=== PATIENT | male | born 1945 | race Caucasian/White ===

== ENCOUNTER 2019-09-26 19:33 | Inpatient (IN) | payer BC, MEDICARE, OTHER ==
[2019-09-26] MEDS ORDERED: Labetalol HCl 100 MG/20 ML VIAL SLOW IVP PRN (20:27)
[2019-09-26] MEDS ORDERED: Morphine 2 MG/ML SYRINGE SLOW IVP PRN (20:27)
[2019-09-26] MEDS ORDERED: Promethazine HCl 12.5 MG in Sodium Chloride 0.9% 50 ML IVPB PRN (20:27)
[2019-09-26] MEDS ORDERED: cloNIDine 0.1 MG TAB PO PRN (20:27)
[2019-09-26] MEDS ORDERED: Ondansetron PF 4 MG/2 ML Vial IVP PRN (20:27)
[2019-09-26] MEDS ORDERED: hydrALAZINE 20 MG/ML VIAL SLOW IVP PRN (20:27)
[2019-09-26] MEDS ORDERED: Guaifenesin DM 100-10/5 ML UDCUP PO PRN (20:31)
[2019-09-26] MEDS ORDERED: Bisacodyl 5 MG TAB PO PRN (20:31)
[2019-09-26] MEDS ORDERED: HYDROcodone/Acetaminophen 5/325 mg Tablet PO PRN (20:31)
[2019-09-26] MEDS ORDERED: Senokot S 8.6-50 MG TAB PO PRN (20:31)
--- NOTE | 2019-09-26 20:40 | PDOC.HHP ---
Hospitalist HPI - History of Present Illness Shortness of breath History of Present Illness: Patient is a 74 year old male with PMH HTN, CAD, CABG who presents to ED for shortness of breath, malaise, fever x 5-6 days, patient reports he developed a fever at work on September 16, about 9 days ago, and went home, his temperature was high, highest was 103.7, and this persisted for 5-6 days. He also reports extreme fatigue and malaise that lasted for several days. He developed shortness of breath 3 days ago or so, which was tolerable for a time but worsened today, patient reports some pleuritic pain today but nothing like previous cardiac pains he has had. He presented to [facility], vitals normal not hypoxic, Tmax there 99.1, given azithromycin and ceftriaxone and transferred for further care. Labs notable for elevated LFTs, AST 118, ALT 241, AKP 158. WBC 11.2. hgb 12, lactic acid 2.3, d dimer 12, tni 0.08,flu swab negative, abg wnl. CXR performed with infiltrates in bilateral lower lung peter and some suggestions of congestion. Patient transferred here for further care. Of note, CT chest for PE performed but do not believe report available yet. EKG NSR [address] changes or dropped beats. Currently patient denies SOB, comfortable on room air , no distress. Hospitalist ROS - Review of Systems Constitutional: reports: fever, chills, sweats, weakness, malaise Eyes: denies: pain, vision change, conjunctivae inflammation, eyelid inflammation, redness, other ENT: denies: ear pain, ear discharge, nose pain, nose discharge, nose congestion , mouth pain, mouth swelling, throat pain, throat swelling, other Respiratory: reports: cough, shortness of breath, pleuritic pain. denies: dry, hemoptysis, SOB with excertion, sputum, wheezing, other Cardiovascular: denies: chest pain, palpitations, orthopnea Gastrointestinal: denies: nausea, vomiting, abdominal pain Genitourinary: denies: dysuria, frequency Musculoskeletal: denies: neck pain, shoulder pain, arm pain, back pain Skin: denies: rash, lesions Neurological: denies: weakness, numbness, incoordination All other systems reviewed; all pertinent +/- noted in HPI/Subj Hospitalist History - Past Medical History Other Medical History: HTN CAD - Past Surgical History Past Surgical History: reports: CABG - Family History Family History: reports: no pertinent history Other Family History: reviewed - Social History Smoking Status: Never smoker Alcohol: reports: None Drugs: reports: none - Exam General Appearance: NAD, awake alert Eye: PERRL, anicteric sclera ENT: normocephalic atraumatic, no oropharyngeal lesions, moist mucosa Neck: supple, symmetric, no JVD, no thyromegaly, no lymphadenopathy, no carotid bruit Heart: RRR, no murmur, no gallops, no rubs, normal peripheral pulses Respiratory: CTAB, no wheezes, no rales, no ronchi, normal chest expansion, no tachypnea, normal percussion Gastrointestinal: soft, non-tender, non-distended, normal bowel sounds, no palpable masses, no hepatomegaly, no splenomegaly, no bruit Extremities: no cyanosis, no clubbing, no edema Skin: normal turgor, no lesions, no rashes Neurological: cranial nerve grossly intact, normal sensation to touch, no weakness, no focal deficits, no new deficit Musculoskeletal: normal tone, normal strength, no muscle wasting Psychiatric: normal affect, normal behavior, A&O x 3 Hospitalist Results - Labs Lab results: outside hospital records reviewed, see HPI for pertinent findings. EKG reviewed , imaging reviewed Hospitalist H&P A/P - Plan Plan: 74 M with PMH HTN, CAD, CABG admitted for: # fever, bilateral pneumonia lower lobes, shortness of breath, pleuritic pain - suspicious for covid/viral pneumonia vs bacterial pneumonia - COVID precautions, swab ordered and performed at [facility] and results will reportedly be reported to our facility when finalized - flu swab was negative there - admit to telemetry - continue azithromycin and ceftriaxone - resume home meds, tylenol PRN fever, follow up final CTA report [facility] - CXR at outside hospital with bilateral lower lobe pneumonia with possible suggestion of overload, will give small dose lasix for a few days # elevated troponin, history of CAD/CABG - EKG nonischemic, non anginal chest pain, will continue to trend cardiac enzymes and observe # elevated D dimer - not clinically appearing like a PE, follow up CTA at outside campus
[2019-09-26] MEDS ORDERED: Aspirin 325 MG TAB PO SCH (21:00)
[2019-09-26 21:14] LABS: Troponin I 0.082 ng/mL (< 0.028)
[2019-09-26] MEDS: Atorvastatin Calcium 40 MG TAB PO SCH (22:26)
[2019-09-26] MEDS: ALPRAZolam 0.25 MG TAB PO SCH (22:26)
[2019-09-26] MEDS: Metoprolol Tartrate 50 MG TAB PO SCH (22:27)
[2019-09-26] MEDS: Gabapentin 300 MG CAP PO SCH (22:27)
[2019-09-27] MEDS: Acetaminophen 325 MG TAB PO PRN ×4 (05:18→21:39)
[2019-09-27 05:22] LABS: #Basophils 0.1 thou/uL (0.0-0.2); #Eosinphils 0.1 thou/uL (0.0-0.7); #Lymphocytes 2.9 thou/uL (1.20-3.40); #Neutrophils 4.5 thou/uL (1.40-6.50); %Basophils 0.6 % (0.0-1.0); %Eosinophils 0.9 % (0.0-10.0); %Lymphocytes 34.2 % (21.0-51.0); %Monocytes 11.5 % (0.0-10.0); %Neutrophils 52.9 % (42.0-75.0); Hemoglobin 11.1 g/dL (14.0-18.0); Mean Corpuscular Hemoglobin 31.1 pg (27.0-31.0); Mean Corpuscular Volume 94.3 fL (78.0-98.0); Mean Platelet Volume 7.5 fL (7.4-10.4); Platelet Count 373 thou/uL (130-400); RBC Distribution Width 12.8 % (11.5-14.5); Red Blood Cell (RBC) Count 3.56 mill/uL (4.70-6.10); White Blood Cell (WBC) Count 8.4 thou/uL (4.8-10.8)
[2019-09-27 05:56] LABS: ALT (SGPT) 159 U/L (8-55); AST (SGOT) 79 U/L (5-34); Albumin 2.7 g/dL (3.4-4.8); Alkaline Phosphatase 126 U/L (40-110); Bilirubin, Direct 0.4 mg/dL (0.1-0.3); Bilirubin, Total 0.7 mg/dL (0.2-1.2); Protein, Total 6.5 g/dL (5.8-8.1)
[2019-09-27 05:57] LABS: Troponin I 0.055 ng/mL (< 0.028)
[2019-09-27 05:58] LABS: Anion Gap 11 mmol/L (10-20); BUN (Urea Nitrogen) 13 mg/dL (8.4-25.7); Calc. Creatinine Clearance 102 mL/min (70-130); Calcium 7.8 mg/dL (7.8-10.44); Carbon Dioxide 22 mmol/L (23-31); Chloride 106 mmol/L (98-107); Estimated GFR-MDRD Greater than 90; Glucose 96 mg/dL (83-110); Magnesium 2.2 mg/dL (1.6-2.6); Potassium 4.4 mmol/L (3.5-5.1); Sodium 135 mmol/L (136-145)
[2019-09-27 06:13] LABS: HBCM Index 0.34 S/CO (0-0.79); HBSAg Index 0.23 S/CO (0-0.99); Hep A IgM AB Non-Reactive (NonReactive); Hep A IgM S/CO 0.25 S/CO (0-0.79); Hep B Surf Ag Non-Reactive S/CO (NonReactive); Hep C IgG Ab Non-Reactive (NonReactive); Hep C Index 0.52 S/CO (0-0.79); Hepatitis B Core IgM Abs Non-Reactive (NonReactive)
[2019-09-27] MEDS ORDERED: Furosemide 40 MG TAB PO SCH (07:30)
--- NOTE | 2019-09-27 07:31 | ULT ---
EXAM: US Gallbladder RUQ CLINICAL HISTORY: Elevated liver function tests. COMPARISON: None. FINDINGS: Pancreas: The head and proximal pancreatic body have a normal echotexture. Remainder of pancreas is obscured by bowel gas Liver:Hepatic parenchyma has a normal echotexture. No hepatic masses or intrahepatic biliary dilatati on. Right hepatic lobe: 17.8 cm Gallbladder: No sonographic evidence of cholelithiasis, gallbladder wall thickening or pericholecysti c fluid. Engel's sign:Negative Portal Vein: Patent. Appropriate directional flow Bile ducts: 0.4 cm common bile duct diameter Right kidney: Right renal cortical thinning. No hydronephrosis.. Right kidney measures 10.5 cm in [facility]. Incidentals: Right pleural effusion IMPRESSION: 1. No sonographic evidence of cholelithiasis or cholecystitis. 2. No hydronephrosis. Right renal cortical thinning. 3. Right pleural effusion
[2019-09-27] MEDS: Azithromycin 250 MG TAB PO SCH (07:46)
[2019-09-27] MEDS: Metoprolol Tartrate 50 MG TAB PO SCH ×2 (07:46→20:43)
[2019-09-27] MEDS: ALPRAZolam 0.25 MG TAB PO SCH ×3 (07:47→20:43)
[2019-09-27] MEDS: Enoxaparin Sodium 40 MG/0.4 ML SYRINGE SC SCH (07:47)
[2019-09-27] MEDS: Escitalopram Oxalate 10 mg Tablet PO SCH (07:47)
[2019-09-27] MEDS: Aspirin 81 mg Enteric Coated Tablet PO SCH (07:47)
[2019-09-27] MEDS: Polyethylene Glycol 3350 17 GM Packet PO SCH (07:47)
[2019-09-27 09:04] LABS: Troponin I 0.044 ng/mL (< 0.028)
--- NOTE | 2019-09-27 18:06 | PDOC.HOSPP ---
- Subjective Encounter Date: 09/27/19 Encounter Time: 16:30 Subjective: pt up in bed feels well. - Objective Vital Signs & Weight: Vital Signs (12 hours) Temp Pulse Resp BP Pulse Ox 09/27/19 15:53 98.2 F 78 21 H 149/80 H 96 09/27/19 12:27 97.5 F L 65 25 H 126/78 94 L 09/27/19 07:50 97.7 F 69 18 145/71 H 93 L Weight Weight 180 lb 9.6 oz I&O: 09/26/19 09/27/19 09/28/19 06:59 06:59 06:59 Intake Total 120 Balance 120 Result Diagrams: 09/27/19 04:53 09/27/19 04:53 Hospitalist ROS - Review of Systems Respiratory: denies: cough, dry, shortness of breath, hemoptysis, SOB with excertion, pleuritic pain, sputum, wheezing, other Cardiovascular: denies: chest pain, palpitations, orthopnea, paroxysmal noc. dyspnea, edema, light headedness, other Gastrointestinal: denies: nausea, vomiting, abdominal pain, diarrhea, constipation, melena, hematochezia, other - Medication Medications: Active Medications Generic Name Dose Route Start Last Admin Trade Name Freq PRN Reason Stop Dose Admin Acetaminophen 650 mg 09/26/19 20:31 09/27/19 15:52 Tylenol PO 650 mg Q4H PRN Administration Headache/Fever/Mild Pain (1-3) Alprazolam 0.25 mg 09/26/19 21:00 09/27/19 15:52 Xanax PO 0.25 mg TID ANATOLIY Administration Aspirin 81 mg 09/27/19 09:00 09/27/19 07:47 Ecotrin PO 81 mg DAILY ANATOLIY Administration Atorvastatin Calcium 40 mg 09/26/19 21:00 09/26/19 22:26 Lipitor PO 40 mg HS ANATOLIY Administration Azithromycin 250 mg 09/27/19 09:00 09/27/19 07:46 Zithromax PO 09/30/19 09:01 250 mg DAILY ANATOLIY Administration Enoxaparin Sodium 40 mg 09/27/19 09:00 09/27/19 07:47 Lovenox SC 40 mg 0900 ANATOLIY Administration Escitalopram Oxalate 10 mg 09/27/19 09:00 09/27/19 07:47 Lexapro PO 10 mg DAILY ANATOLIY Administration Furosemide 40 mg 09/27/19 07:30 09/27/19 07:47 Lasix PO 09/29/19 07:31 40 mg DAILY-AC ANATOLIY Administration Gabapentin 600 mg 09/26/19 21:00 09/26/19 22:27 Neurontin PO 600 mg HS ANATOLIY Administration Metoprolol Tartrate 50 mg 09/26/19 21:00 09/27/19 07:46 Lopressor PO 50 mg BID ANATOLIY Administration Pantoprazole Sodium 40 mg 09/27/19 09:00 09/27/19 07:47 Protonix PO 40 mg DAILY ANATOLIY Administration Polyethylene Glycol 17 gm 09/27/19 09:00 09/27/19 07:47 Miralax PO Not Given DAILY ANATOLIY - Exam Heart: negative: RRR, no murmur, no gallops, no rubs, normal peripheral pulses, irregular, diminshed peripheral pulses, murmur present, II/IV, III/IV Respiratory: negative: CTAB, no wheezes, no rales, no ronchi, normal chest expansion, no tachypnea, normal percussion, rales, rhonchi, tachypneic, wheezes Gastrointestinal: negative: soft, non-tender, non-distended, normal bowel sounds , no palpable masses, no hepatomegaly, no splenomegaly, no bruit, no guarding, no rigidity, tender to palpation, distended, diminished bowl sounds, voluntary guarding Extremities: 1+ LE edema Hosp A/P (1) SOB (shortness of breath) Code(s): R06.02 - SHORTNESS OF BREATH Status: Acute (2) Pneumonia Code(s): J18.9 - PNEUMONIA, UNSPECIFIED ORGANISM Status: Acute (3) CAD (coronary artery disease) Code(s): I25.10 - ATHSCL HEART DISEASE OF [place] CORONARY ARTERY W/O ANG PCTRS Status: Acute (4) Renal mass Code(s): N28.89 - OTHER SPECIFIED DISORDERS OF KIDNEY AND URETER Status: Acute - Plan pt's cta indicates mild to moderate pleural effusion with adjacent infiltrate/ atelectatic changes. pt has been having fevers. covid test pending. will get a echo. He had a elevated d-dimer and elevated lfts. pt states that he has been ill since september 10. He had fever for about 5-6 days pt got better then got sick again. 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 prior to coming in he got sob which made him come in to the hospital. Per pt he was pt on a bipap at the [facility]. He states he feels well. will continue his lasix oral. His bnp was mildly elevated. NO PE. trop was mildly elevated.
[2019-09-27] MEDS: Gabapentin 300 MG CAP PO SCH (20:43)
[2019-09-27] MEDS: Atorvastatin Calcium 40 MG TAB PO SCH (20:43)
[2019-09-27] MEDS: cefTRIAXone\\ROCEPHIN 1 GM in Sodium Chloride 0.9% 100 ML IVPB SCH (20:43)
[2019-09-28] MEDS: Acetaminophen 325 MG TAB PO PRN (04:56)
[2019-09-28 05:27] LABS: #Eosinphils 0.1 thou/uL (0.0-0.7); #Lymphocytes 2.3 thou/uL (1.20-3.40); #Monocytes 0.8 thou/uL (0.11-0.59); #Neutrophils 3.6 thou/uL (1.40-6.50); %Basophils 0.6 % (0.0-1.0); %Eosinophils 1.3 % (0.0-10.0); %Lymphocytes 33.7 % (21.0-51.0); %Monocytes 12.2 % (0.0-10.0); %Neutrophils 52.2 % (42.0-75.0); Hemoglobin 11.4 g/dL (14.0-18.0); Mean Corpuscular HGB CONC 32.9 g/dL (32.0-36.0); Mean Corpuscular Hemoglobin 31.2 pg (27.0-31.0); Mean Corpuscular Volume 94.6 fL (78.0-98.0); Mean Platelet Volume 7.2 fL (7.4-10.4); Platelet Count 374 thou/uL (130-400); RBC Distribution Width 12.9 % (11.5-14.5); Red Blood Cell (RBC) Count 3.66 mill/uL (4.70-6.10); White Blood Cell (WBC) Count 6.9 thou/uL (4.8-10.8)
[2019-09-28 05:45] LABS: Anion Gap 13 mmol/L (10-20); BUN (Urea Nitrogen) 11 mg/dL (8.4-25.7); Calc. Creatinine Clearance 102 mL/min (70-130); Carbon Dioxide 22 mmol/L (23-31); Chloride 107 mmol/L (98-107); Estimated GFR-MDRD Greater than 90; Glucose 94 mg/dL (83-110); Magnesium 2.3 mg/dL (1.6-2.6); Potassium 4.2 mmol/L (3.5-5.1); Sodium 138 mmol/L (136-145)
[2019-09-28 05:47] LABS: ALT (SGPT) 135 U/L (8-55); AST (SGOT) 68 U/L (5-34); Albumin 2.8 g/dL (3.4-4.8); Alkaline Phosphatase 119 U/L (40-110); Bilirubin, Direct 0.4 mg/dL (0.1-0.3); Bilirubin, Total 0.7 mg/dL (0.2-1.2); Protein, Total 6.7 g/dL (5.8-8.1)
[2019-09-28] MEDS ORDERED: Fioricet 325/50/40 mg Tablet PO PRN (09:25)
[2019-09-28] MEDS: Enoxaparin Sodium 40 MG/0.4 ML SYRINGE SC SCH (09:28)
[2019-09-28] MEDS: Polyethylene Glycol 3350 17 GM Packet PO SCH (09:28)
[2019-09-28] MEDS: Escitalopram Oxalate 10 mg Tablet PO SCH (09:29)
[2019-09-28] MEDS: Azithromycin 250 MG TAB PO SCH (09:29)
[2019-09-28] MEDS: ALPRAZolam 0.25 MG TAB PO SCH ×3 (09:29→20:33)
[2019-09-28] MEDS: Furosemide 40 MG/4 ML VIAL SLOW IVP SCH (09:29)
[2019-09-28] MEDS: Metoprolol Tartrate 50 MG TAB PO SCH ×2 (09:29→20:33)
[2019-09-28] MEDS: Aspirin 81 mg Enteric Coated Tablet PO SCH (09:29)
[2019-09-28] MEDS: Carbamide Peroxide 6.5% Otic Drops 15 ml Bottle EA EAR SCH ×2 (09:29→20:34)
--- NOTE | 2019-09-28 10:23 | RAD ---
Exam: Chest one view HISTORY:Shortness of breath Comparison: None FINDINGS: Cardiac silhouette:Normal cardiac silhouette. There are sternotomy wires. Aorta: Atherosclerosis Pulmonary vessels: Slightly prominent Costophrenic angles: Clear LUNGS: Diffuse interstitial prominence, without consolidation or mass. Pneumothorax: None Osseous abnormalities: None IMPRESSION: 1. Pulmonary vascular prominence and interstitial prominence. Correlate for volume overload. 2. Superimposed interstitial infiltrate cannot be excluded. Continued surveillance is recommended.
[2019-09-28 17:22] LABS: SARS-CoV-2 MS2 Positive; SARS-CoV-2 N Gene Negative; SARS-CoV-2 S Gene Negative; SARS-CoV-2 orf1ab Negative
[2019-09-28 20:00] LABS: SARS-CoV-2 IgG Ab Non-Reactive (NonReactive)
[2019-09-28] MEDS: cefTRIAXone\\ROCEPHIN 1 GM in Sodium Chloride 0.9% 100 ML IVPB SCH (20:32)
[2019-09-28] MEDS: Gabapentin 300 MG CAP PO SCH (20:33)
[2019-09-28] MEDS: Atorvastatin Calcium 40 MG TAB PO SCH (20:34)
[2019-09-28 20:46] LABS: SARS-CoV-2 IgG Index 0.02 S/CO (< 1.40)
[2019-09-29] MEDS: Acetaminophen 325 MG TAB PO PRN (03:53)
[2019-09-29 04:04] VITALS: BMI 27.1
[2019-09-29 05:24] LABS: #Basophils 0.1 thou/uL (0.0-0.2); #Eosinphils 0.1 thou/uL (0.0-0.7); #Lymphocytes 2.1 thou/uL (1.20-3.40); #Monocytes 0.7 thou/uL (0.11-0.59); #Neutrophils 3.5 thou/uL (1.40-6.50); %Basophils 1.1 % (0.0-1.0); %Eosinophils 1.8 % (0.0-10.0); %Lymphocytes 32.2 % (21.0-51.0); %Monocytes 10.9 % (0.0-10.0); %Neutrophils 54.1 % (42.0-75.0); Hemoglobin 11.8 g/dL (14.0-18.0); Mean Corpuscular HGB CONC 30.8 g/dL (32.0-36.0); Mean Corpuscular Hemoglobin 29.4 pg (27.0-31.0); Mean Corpuscular Volume 95.5 fL (78.0-98.0); Mean Platelet Volume 7.2 fL (7.4-10.4); Platelet Count 394 thou/uL (130-400); RBC Distribution Width 12.9 % (11.5-14.5); White Blood Cell (WBC) Count 6.5 thou/uL (4.8-10.8)
[2019-09-29 05:38] LABS: ALT (SGPT) 113 U/L (8-55); AST (SGOT) 57 U/L (5-34); Albumin 2.8 g/dL (3.4-4.8); Alkaline Phosphatase 116 U/L (40-110); Anion Gap 13 mmol/L (10-20); BUN (Urea Nitrogen) 12 mg/dL (8.4-25.7); Bilirubin, Direct 0.3 mg/dL (0.1-0.3); Bilirubin, Total 0.6 mg/dL (0.2-1.2); Calc. Creatinine Clearance 95 mL/min (70-130); Calcium 7.8 mg/dL (7.8-10.44); Carbon Dioxide 23 mmol/L (23-31); Chloride 105 mmol/L (98-107); Estimated GFR-MDRD Greater than 90; Glucose 87 mg/dL (83-110); Magnesium 2.2 mg/dL (1.6-2.6); Protein, Total 6.7 g/dL (5.8-8.1); Sodium 137 mmol/L (136-145)
--- NOTE | 2019-09-29 06:04 | PDOC.HOSPP ---
- Subjective Encounter Date: 09/28/19 Encounter Time: 10:15 Subjective: pt up in bed no complains - Objective Vital Signs & Weight: Vital Signs (12 hours) Temp Pulse Resp BP Pulse Ox 09/29/19 03:15 97.8 F 71 14 160/87 H 95 09/28/19 20:10 98.3 F 68 15 140/74 97 Weight Weight 168 lb 11.2 oz I&O: 09/27/19 09/28/19 09/29/19 06:59 06:59 06:59 Intake Total 120 1060 2640 Output Total 650 Balance 953 227 7480 Result Diagrams: 09/29/19 04:43 09/29/19 04:43 Hospitalist ROS - Review of Systems Gastrointestinal: denies: nausea, vomiting, abdominal pain, diarrhea, constipation, melena, hematochezia, other Genitourinary: denies: dysuria, frequency, incontinence, hematuria, retention, other Musculoskeletal: denies: neck pain, shoulder pain, arm pain, back pain, hand pain, leg pain, foot pain, other - Medication Medications: Active Medications Generic Name Dose Route Start Last Admin Trade Name Freq PRN Reason Stop Dose Admin Acetaminophen 650 mg 09/26/19 20:31 09/29/19 03:53 Tylenol PO 650 mg Q4H PRN Administration Headache/Fever/Mild Pain (1-3) Acetaminophen/Butalbital/Caffeine 1 tab 09/28/19 09:25 09/28/19 12:59 Fioricet PO 10/03/19 09:26 1 tab Q4H PRN Administration Headache Alprazolam 0.25 mg 09/26/19 21:00 09/28/19 20:33 Xanax PO 0.25 mg TID ANATOLIY Administration Aspirin 81 mg 09/27/19 09:00 09/28/19 09:29 Ecotrin PO 81 mg DAILY ANATOLIY Administration Atorvastatin Calcium 40 mg 09/26/19 21:00 09/28/19 20:34 Lipitor PO 40 mg HS ANATOLIY Administration Azithromycin 250 mg 09/27/19 09:00 09/28/19 09:29 Zithromax PO 09/30/19 09:01 250 mg DAILY ANATOLIY Administration Carbamide Perox/Anhydrous Glycerin 1 drop 09/28/19 09:00 09/28/19 20:34 Debrox 6.5% Otic EA EAR 1 drop BID ANATOLIY Administration Enoxaparin Sodium 40 mg 09/27/19 09:00 09/28/19 09:28 Lovenox SC 40 mg 0900 ANATOLIY Administration Escitalopram Oxalate 10 mg 09/27/19 09:00 09/28/19 09:29 Lexapro PO 10 mg DAILY ANATOLIY Administration Furosemide 40 mg 09/28/19 09:00 09/28/19 09:29 Lasix SLOW IVP 09/29/19 09:01 40 mg DAILY ANATOLIY Administration Gabapentin 600 mg 09/26/19 21:00 09/28/19 20:33 Neurontin PO 600 mg HS ANATOLIY Administration Ceftriaxone Sodium 1 gm/ 100 mls @ 200 mls/hr 09/27/19 20:00 09/28/19 20:32 Sodium Chloride IVPB 100 mls 2000 ANATOLIY Administration Metoprolol Tartrate 50 mg 09/26/19 21:00 09/28/19 20:33 Lopressor PO 50 mg BID ANATOLIY Administration Pantoprazole Sodium 40 mg 09/27/19 09:00 09/28/19 09:29 Protonix PO 40 mg DAILY ANATOLIY Administration Polyethylene Glycol 17 gm 09/27/19 09:00 09/28/19 09:28 Miralax PO 17 gm DAILY ANATOLIY Administration Sodium Chloride 10 ml 09/28/19 21:00 09/28/19 20:34 Flush - Normal Saline IVF 10 ml Q12HR ANATOLIY Administration - Exam Heart: negative: RRR, no murmur, no gallops, no rubs, normal peripheral pulses, irregular, diminshed peripheral pulses, murmur present, II/IV, III/IV Respiratory: negative: CTAB, no wheezes, no rales, no ronchi, normal chest expansion, no tachypnea, normal percussion, rales, rhonchi, tachypneic, wheezes Gastrointestinal: negative: soft, non-tender, non-distended, normal bowel sounds , no palpable masses, no hepatomegaly, no splenomegaly, no bruit, no guarding, no rigidity, tender to palpation, distended, diminished bowl sounds, voluntary guarding Extremities: negative: no cyanosis, no clubbing, no edema, 1+ LE edema, 2+ LE edema, clubbing Hosp A/P (1) SOB (shortness of breath) Code(s): R06.02 - SHORTNESS OF BREATH Status: Acute (2) Pneumonia Code(s): J18.9 - PNEUMONIA, UNSPECIFIED ORGANISM Status: Acute (3) CAD (coronary artery disease) Code(s): I25.10 - ATHSCL HEART DISEASE OF [place] CORONARY ARTERY W/O ANG PCTRS Status: Acute (4) Renal mass Code(s): N28.89 - OTHER SPECIFIED DISORDERS OF KIDNEY AND URETER Status: Acute - Plan pt's cta indicates mild to moderate pleural effusion with adjacent infiltrate/ atelectatic changes. pt has been having fevers. covid test pending. will get a echo. He had a elevated d-dimer and elevated lfts. pt states that he has been ill since september 10. He had fever for about 5-6 days pt got better then got sick again. 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 prior to coming in he got sob which made him come in to the hospital. Per pt he was pt on a bipap at the [facility]. He states he feels well. will continue his lasix oral. His bnp was mildly elevated. NO PE. trop was mildly elevated. 5/5 covid tested again given his symptoms. He apparently had 3 test and are negative. will get echo. he is feeling a lot better. His cta reviewed and appears to have emphysema significant. He has a hx of smoking 2 pack a day in the past. will continue diuretics for now. His lfts are improving. RUQ ultrasound indicated mild hepatomegaly. hepatitis panel negative.if echo normal will discharge him home today. His headache is also improving.
[2019-09-29] MEDS: Enoxaparin Sodium 40 MG/0.4 ML SYRINGE SC SCH (08:59)
[2019-09-29] MEDS: ALPRAZolam 0.25 MG TAB PO SCH (08:59)
[2019-09-29] MEDS: Furosemide 40 MG/4 ML VIAL SLOW IVP SCH (08:59)
[2019-09-29] MEDS: Polyethylene Glycol 3350 17 GM Packet PO SCH (09:00)
[2019-09-29] MEDS: Aspirin 81 mg Enteric Coated Tablet PO SCH (09:00)
[2019-09-29] MEDS: Azithromycin 250 MG TAB PO SCH (09:00)
[2019-09-29] MEDS: Metoprolol Tartrate 50 MG TAB PO SCH (09:00)
[2019-09-29] MEDS: Escitalopram Oxalate 10 mg Tablet PO SCH (09:00)
[2019-09-29] MEDS: Carbamide Peroxide 6.5% Otic Drops 15 ml Bottle EA EAR SCH (09:00)
[2019-09-29 11:59] VITALS: BP 160/81; TEMP 97.4
--- NOTE | 2019-09-30 04:50 | DIS ---
DATE OF ADMISSION: 09/26/2019 DATE OF DISCHARGE: 09/29/2019 DISCHARGE DIAGNOSES: As of the following. 1. Shortness of breath, acute onset. 2. Pneumonia. 3. Coronary artery disease. 4. Elevated liver function tests. 5. Renal mass. HOSPITAL COURSE: The patient is a 74-year-old male, who initially presented to the hospital at [facility] with complaints of sudden onset of shortness of breath x1 day. The patient states that towards the mid August, he was ill for about 6 days, had very high fevers. He stated that he initially felt better, then started feeling unwell. He had an outpatient drive-through COVID test, which was negative. The patient stated that he had a low-grade fever and just felt weak all over. On the day of admission, the patient stated that he had minimal exertion, significant shortness of breath and that is why he came into the hospital. The patient underwent a CTA to rule out PE given his elevated D-dimer. His CTA for PE was negative. However, upon evaluating his CAT scan, he had a significant amount of emphysematous changes and also bilateral small pleural effusions and appeared to have possible infiltrate left greater than right, which was noted. He also had some mediastinal and hilar lymphadenopathy that was noted. The patient also had mentioned of an indeterminate 2.3 cm renal mass that was noted on the left kidney. The patient initially had elevated LFTs with unclear etiology. His serology for hepatitis was negative. His abdominal ultrasound indicated mild hepatomegaly. However, everything else appeared to be normal. I initially continued the atorvastatin throughout the hospital stay. His LFTs actually improved. The reason for continuing of his atorvastatin was that he has a history of significant hypercholesterolemia and patient states that when he stops taking it, his cholesterol goes up to the 350s. At this time, given the fact that his LFTs were improving just with his atorvastatin on, I have continued it. I would like the patient to get a recheck of his LFTs on his next visit to his primary care doctor. He had a COVID test done a total of 3 times and they were all negative. The COVID IgG was also negative. The patient also was given diuretics. Initially his BNP was 179. When I rechecked it while he was on diuretics, it was 293. I did go ahead and do an echocardiogram, which indicated an EF of 50% to 60% with normal left size atrium and left ventricular size was also normal. He did have an EKG done, which was sinus rhythm. He did have some mildly elevated troponins, which most likely was secondary to possibly just demand related. He denied any chest pain. The patient has been ambulating in the hallway without any issues without any problems. I did speak with the and the patient, the patient will need a followup with: 1. Pulmonology given his extensive emphysematous changes on the CAT scan. 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 He does have a history of heavy smoking, but he quit many years ago. 2. I recommend the patient getting LFTs checked since he continues to be on a statin. 3. I also recommend the patient to follow up with Cardiology. 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 4. I recommend patient establishing and he stated that he will follow up with Dr. Romano. He did have some mildly elevated troponins, which were in the indeterminate range. However, the patient never had any chest pain. 5. He also has a finding of a renal 2.3 cm mass, for which he will require an ultrasound and an evaluation. 6. In terms of pneumonia, he did really well with azithromycin and ceftriaxone. I am switching it over to Levaquin 750 mg total of about 10 days. PHYSICAL EXAMINATION: VITAL SIGNS: Temperature of 97.8, 71, 14, 95% on room air, 145/77. GENERAL: He is awake, alert, and oriented x3. Does not appear in distress. CV: S1, S2 present. No murmurs, rubs, gallops. ABDOMEN: Soft and nontender. Bowel sounds are present x2. HOME MEDICATIONS: Will be as of the followin. Levofloxacin 750 mg daily for about 7 days. 2. Atorvastatin 40 mg daily. 3. Gabapentin 600 mg at bedtime. 4. Citalopram 10 mg daily. 5. Metoprolol 50 mg b.i.d. 6. Xanax 0.25 t.i.d. DISPOSITION: He will be discharged home. FOLLOWUP: He will follow up with his primary. Job ID: [id number]
--- NOTE | 2019-09-30 07:04 | PQF ---
[employer] Rep[employer]r Crystal Reports Winform Viewer BC JIMENEZ KARISHMA [id number] [facility]244 [id number] CLINICAL DOCUMENTATION CLARIFICATION FORM: POST DISCHARGE Addendum to original discharge summary date: ____ Late entry note date: __ DATE:09/30/19 ATTN: Valerie Gottlieb Please exercise your independent, professional judgment in responding to the clarification form. Clinical indicators are provided on the bottom of this form for your review Can you please further clarify the specificity of Pneumonia? Please check appropriate box(s): [ ] Empirically treating Gram Negative Pneumonia [ ] Empirically treating Anaerobic Pneumonia [ ] Pneumonia secondary to (specify organism / underlying disease) [ ] Simple Pneumonia (community acquired - nosocomial) [ x ] Pneumonia of unknown etiology [ ] Other diagnosis please specify [ ] Unable to determine In addition, please specify: Present on Admission (POA): [ x ] Yes [ ] No [ ] Unable to determine For continuity of documentation, please document condition throughout progress notes and discharge summary. Thank You. CLINICAL INDICATORS - SIGNS / SYMPTOMS / LABS H and P pg.1- Shortness of breath H and P pg.3- admitted for Fever, bilateral pneumonia lower lobes, shortness of breath, pleuritic pain H and P pg.3- suspicious for covid/viral pneumonia vs bacterial pneumonia Hospitalist PN 09/27 pg.5- Pneumonia, unspecified organism RISK FACTORS 74 years old H and P pg.1 CAD- H and P pg.1 HTN- H and P pg.1 TREATMENTS: Chest X ray 09/27 IV Fluids- MAR Azithromycin 250mg PO- MAR Ceftriaxone 1gm IV- MAR (This form is maintained as a part of the permanent medical record) 2014 [email or web address]. All Rights Reserved [email or web address]
--- NOTE | 2019-10-05 12:32 | PQF ---
CLINICAL DOCUMENTATION IMPROVEMENT CLARIFICATION FORM: ICD-10 Updated PLEASE DO AN ADDENDUM TO THE PROGRESS NOTE WITH ANY DOCUMENTATION UPDATES OR ADDITIONS AND CARRY THROUGH TO DC SUMMARY. THANK YOU. DATE: 10/05/2019 ATTN: Dr. Gottlieb Please exercise your independent, professional judgment in responding to the clarification form. Clinical indicators are provided on the bottom of this form for your review Please check appropriate box(s): HEART FAILURE: A. ACUITY [ ] Acute [ ] Acute on Chronic [ ] Chronic B. TYPE [ ] Systolic / HFrEF [ ] Diastolic / HFpEF [ ] Combined Systolic / Diastolic [ ] Other diagnosis [ ] Unable to determine In addition, please specify: Present on Admission (POA): [ ] Yes [ ] No [ ] Unable to determine For continuity of documentation, please document condition throughout progress notes and discharge summary. Thank You. CLINICAL INDICATORS - SIGNS / SYMPTOMS / LABS / RESULTS AND LOCATION IN EMR H&P 09/25: CXR performed with infiltrates in bilateral lower lung peter and some suggestions of congestion. CXR at outside hospital with bilateral lower lobe pneumonia with possible suggestion of overload, will give small dose lasix for a few days 09/26 (Chery) Exam: 1+ LE edema A/P: SOB Plan: pt's cta indicates mild to moderate pleural effusion with adjacent infiltrate/atelectatic changes. His bnp was mildy elevated DC Summary 09/28 : Initially his BNP was 179. When I rechecked it while he was on diuretics, it was 293 Echocardiogram, indicated an EF of 50% to 60% with normal L size atrium and L ventricular size was also normal. Echocardiogram Report 09/28: Impaired relaxation compatible with diastolic dysfunction (reversed E/A ratio) RISKS: H&P 09/25: PMH HTN, CAD, CABG. TREATMENT: Order 09/26: Lasix 40mg po daily Order 09/26-09/27: Lasix 40mg slow IVP Daily ECHO 09/28 Thank you, Sarah (This form is maintained as a part of the permanent medical record) 2014 [employer]. All Rights Reserved Sarah Butts RN, BSN [email or web address] [facility]
== END 2019-09-29 15:15 | disposition home or self-care (01) | DRG 194 ==
LOC: 2SW 19:33 → OBSVTOIN 19:33
PROVIDERS: ADMIT Internal Medicine; ATTEND Internal Medicine
DX: J18.9 Pneumonia, unspecified organism (principal); J90 Pleural effusion, not elsewhere classified; Z20.828 Contact with and (suspected) exposure to other viral communicable diseases; I25.10 Atherosclerotic heart disease of native coronary artery without angina pectoris; N28.89 Other specified disorders of kidney and ureter; I10 Essential (primary) hypertension; Z95.1 Presence of aortocoronary bypass graft
CPT/HCPCS: 36415; 71045; 76705; 80048; 80074; 80076; 83735; 83880; 84145; 84484; 85025; 86140; 86769; 87635; 93306; J0696; J1650; J1940; J3490; U0003

== ENCOUNTER 2019-11-19 13:10 | Outpatient (CLI) | payer BC, MEDICARE ==
--- NOTE | 2019-11-19 14:30 | ULT ---
BILATERAL CAROTID DUPLEX ULTRASOUND: 11/19/19 HISTORY: Atherosclerotic vascular disease. Coronary artery disease. TECHNIQUE: Mitchell scale, color flow and spectral Doppler imaging of the extracranial carotid artery system is perf ormed bilaterally. FINDINGS: There is plaque formation in the right ICA. The peak systolic velocity in the right ICA measures 76 cm/s with an end diastolic velocity of 22 cm/ s and systolic ratio of 0.9. The peak systolic velocity in the left ICA measures 92 cm/s with an end diastolic velocity of 20 cm/s and systolic ratio of 1.02. Flow in both vertebral arteries remains antegrade. IMPRESSION: No evidence of hemodynamically significant stenosis in either ICA. POS: [facility]
== END 2019-11-19 13:11 | disposition home or self-care (01) ==
LOC: BICULT 13:10
PROVIDERS: ATTEND Psychiatry & Neurology Neurology
DX: I25.10 Atherosclerotic heart disease of native coronary artery without angina pectoris (principal)
CPT/HCPCS: 93880

== ENCOUNTER 2019-12-30 07:29 | Outpatient (CLI) | payer BC, MEDICARE, OTHER ==
--- NOTE | 2019-12-30 15:15 | RAD ---
EXAM: Chest 2 views: HISTORY: Preoperative radiograph COMPARISON: 09/28/2019 FINDINGS: There is a normal-sized cardiomediastinal silhouette. The patient is status post sternotomy. There is no evidence of consolidation, mass, or pleural effusion. The bones are unremarkable. IMPRESSION: No evidence of acute cardiopulmonary disease
[2019-12-30 16:17] LABS: #Eosinphils 0.2 thou/uL (0.0-0.7); #Lymphocytes 2.7 thou/uL (1.20-3.40); #Monocytes 0.6 thou/uL (0.11-0.59); #Neutrophils 3.6 thou/uL (1.40-6.50); %Basophils 0.4 % (0.0-1.0); %Eosinophils 2.8 % (0.0-10.0); %Monocytes 8.6 % (0.0-10.0); %Neutrophils 50.2 % (42.0-75.0); Mean Corpuscular Hemoglobin 30.7 pg (27.0-31.0); Mean Corpuscular Volume 93.1 fL (78.0-98.0); Mean Platelet Volume 8.1 fL (7.4-10.4); Platelet Count 369 thou/uL (130-400); RBC Distribution Width 12.7 % (11.5-14.5); Red Blood Cell (RBC) Count 4.25 mill/uL (4.70-6.10); White Blood Cell (WBC) Count 7.2 thou/uL (4.8-10.8)
--- NOTE | 2019-12-30 16:26 | EKG ---
Test Reason : Blood Pressure : / mmHG Vent. Rate : 080 BPM Atrial Rate : 080 BPM P-R Int : 164 ms QRS Dur : 080 ms QT Int : 376 ms P-R-T Axes : 063 052 042 degrees QTc Int : 433 ms Normal sinus rhythm Normal ECG Confirmed by JORGE BAI ([id number] on 12/30/2019 4:26:26 PM Referred By: LUI Confirmed By:JORGE BAI
[2019-12-30 16:42] LABS: Anion Gap 11 mmol/L (10-20); BUN (Urea Nitrogen) 26 mg/dL (8.4-25.7); Calc. Creatinine Clearance 0 mL/min (70-130); Calcium 8.9 mg/dL (7.8-10.44); Carbon Dioxide 28 mmol/L (23-31); Chloride 104 mmol/L (98-107); Estimated GFR-MDRD 73; Glucose 105 mg/dL (83-110); Potassium 4.3 mmol/L (3.5-5.1); Sodium 139 mmol/L (136-145)
[2019-12-31 14:22] LABS: SARS-CoV-2 MS2 Positive; SARS-CoV-2 N Gene Negative; SARS-CoV-2 S Gene Negative; SARS-CoV-2 by NAA Not Detected (NotDetected); SARS-CoV-2 orf1ab Negative
== END 2019-12-30 07:30 | disposition home or self-care (01) ==
LOC: LABBT 07:29 → SCSRAD 07:30
PROVIDERS: ATTEND Specialist
DX: Z01.818 Encounter for other preprocedural examination (principal); Z11.59 Encounter for screening for other viral diseases; B99.9 Unspecified infectious disease
CPT/HCPCS: 71046; 80048; 85025; 87635; 93005; 93010; U0003

== ENCOUNTER 2020-02-15 09:23 | Outpatient (CLI) | payer BC, MEDICARE ==
--- NOTE | 2020-02-15 10:03 | CT ---
CT OF THE CHEST WITH IV CONTRAST INDICATION: History of pneumonia COMPARISON: Chest radiograph dated December 30, 2019 and a CTA of the chest dated September 26, 2019 FINDINGS: CHEST: Lungs: There is stable emphysema. No airspace consolidation or suspicious pulmonary nodule is identif ied. Pleural space: No effusion. 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 There are moderate vascular calcifications seen involving the visualized vasculature. No pathologically enlarged lymph nodes are evident. Upper abdomen:There are multiple hepatic cysts. There is a 2.1 cm left mid renal cyst. Adrenal glands are normal appearing. There is a moderate amount of retained stool within the colon. Osseous structures: There is mild thoracolumbar scoliosis. Small suspected bone island is seen within the right aspect of T9. There is stable mild superior endplate compression deformity of T7. There is scattered degenerative and osteoarthritic changes. Soft tissues:Normal. IMPRESSION: 1. No acute abnormality. 2. Stable emphysema 3. Hepatic and left renal cysts. 4. Stable chronic mild superior endplate compression fracture of T7.
[2020-02-15] MEDS ORDERED: Iopamidol 370 76% 100 ML VIAL ONE (10:53)
== END 2020-02-15 09:24 | disposition home or self-care (01) ==
LOC: BICCT 09:23
PROVIDERS: ATTEND Internal Medicine Critical Care Medicine
DX: J90 Pleural effusion, not elsewhere classified (principal); R91.1 Solitary pulmonary nodule; J43.9 Emphysema, unspecified; K76.89 Other specified diseases of liver; N28.1 Cyst of kidney, acquired; S22.069D Unspecified fracture of T7-T8 vertebra, subsequent encounter for fracture with routine healing
CPT/HCPCS: 71260; 82565; Q9967

== ENCOUNTER 2020-10-31 09:47 | Outpatient (CLI) | payer BC, MEDICARE | END 2020-10-31 09:48 | disposition home or self-care (01) | LOC: BICCT 09:47 | PROVIDERS: ATTEND Internal Medicine Critical Care Medicine | DX: R59.0 Localized enlarged lymph nodes (principal); R91.1 Solitary pulmonary nodule; J43.9 Emphysema, unspecified; N28.1 Cyst of kidney, acquired; K76.9 Liver disease, unspecified | CPT/HCPCS: 71250 ==

== ENCOUNTER 2023-03-24 17:00 | Outpatient (CLI) | payer BC, MEDICARE | END 2023-03-24 17:01 | disposition home or self-care (01) | LOC: SLEEPLAB 17:00 | PROVIDERS: ATTEND Internal Medicine | DX: G47.33 Obstructive sleep apnea (adult) (pediatric) (principal); R06.83 Snoring | CPT/HCPCS: 95800 ==